=== PATIENT | female | born 1975 | race Caucasian/White ===

== ENCOUNTER → 2019-07-24 13:46 | Outpatient (CLI) | payer OTHER, SELFPAY ==
--- NOTE | ~2019-07-24 | MM_ITS ---
EXAMINATION: MM screening aleisha BI w kvng HISTORY: Screening mammogram TECHNIQUE: Craniocaudal and mediolateral oblique 3-D tomosynthesis images were obtained and synthetic 2-D images were generated. CAD analysis was submitted and interpreted. COMPARISON: 02/08/2018, 01/07/2014 bilateral digital screening mammogram examinations BREAST PARENCHYMAL COMPOSITION: The breasts are heterogeneously dense, which may obscure small masses . FINDINGS: 1 cm mass is suggested posteriorly in the lower inner right breast (MLO Tomosynthesis image 58/88). 3.5 mm circumscribed mass is noted anteriorly in the upper mid right breast (MLO Tomosynthesis image 36/88) Otherwise there is no evidence of suspicious mass, calcification, or architectural distortion to sugg est malignancy in either breast. There has been no other suspicious interval change. IMPRESSION: 1. Possible right breast masses 2. Diagnostic right mammogram and right breast ultrasound examination are recommended. BI-RADS Category 0: Incomplete: Needs additional imaging evaluation. Reviewed, dictated and finalized at location A. L PREPAREDNESS COORDINATOR IMPRESSION: 1. Possible right breast masses 2. Diagnostic right mammogram and right breast ultrasound examination are recom mended. BI-RADS Category 0: Incomplete: Needs additional imaging evaluation.
== END ==
PROVIDERS: PCP Family Medicine; Visit Provider Nurse Practitioner
DX: Z12.31 Encounter for screening mammogram for malignant neoplasm of breast (principal); R92.8 Other abnormal and inconclusive findings on diagnostic imaging of breast
CPT/HCPCS: 77063; 77067

== ENCOUNTER 2019-08-14 09:33 | Outpatient (CLI) | payer OTHER, SELFPAY ==
--- NOTE | ~2019-08-14 | MMUS_ITS ---
EXAMINATION: MM diagnostic mammo unilat RT, US breast RT limited HISTORY: 1 cm mass in posterior lower inner right breast and 3.5 mm mass anteriorly in upper mid righ t breast on 07/24/2019 bilateral digital screening mammogram TECHNIQUE: Additional 3-D tomosynthesis images of the right breast were performed and synthetic 2-D i mages were generated. CAD analysis was submitted and interpreted. High resolution limited right breas t ultrasound was performed. COMPARISON: 07/24/2019 bilateral digital screening mammogram FINDINGS: MAMMOGRAPHIC FINDINGS: An approximately 7 x 7 mm circumscribed reniform opacity is noted. Posteriorly in the mid to lower ri ght breast on MLO and ML views. This has the appearance of an intramammary lymph node and may be mini kadeem evident at the posterior margin of the right breast on 02/08/2018 MLO view. An approximately 3 mm circumscribed low-density opacity is again noted in the upper outer right breas t, with suggestion of a radiolucent hilus, likely a small benign intramammary lymph node. ULTRASOUND: 1:00 8 cm from nipple: 3 x 6 mm benign-appearing lymph node 12-1:00 4 cm from nipple: 3 x 6.3 mm circumscribed primarily sonolucent lesion with minimal internal septation, without internal vascularity or posterior shadowing. The sonographic appearance is benign. IMPRESSION: 1. No mammographic evidence of malignancy 2. 6 month diagnostic right mammogram follow-up is recommended, with ultrasound if required. BI-RADS category 3, probably benign findings. Reviewed, dictated and finalized at location A. S PERSON IMPRESSION: 1. No mammographic evidence of malignancy 2. 6 month diagnostic right mammogram follow-up is recommended, with ultrasound if required. BI-RADS category 3, probably benign findings.
== END 2019-08-14 09:34 ==
LOC: MICIMG 09:33
PROVIDERS: Visit Provider Obstetrics & Gynecology Gynecology
DX: R92.8 Other abnormal and inconclusive findings on diagnostic imaging of breast (principal)
CPT/HCPCS: 76642; 77065

== ENCOUNTER → 2020-02-19 09:28 | Outpatient (CLI) | payer OTHER, SELFPAY ==
--- NOTE | ~2020-02-19 | MMUS_ITS ---
EXAMINATION: MM diagnostic aleisha BI w kvng, US breast LT limited HISTORY: Left breast thickening and palpable lump TECHNIQUE: Additional 3-D tomosynthesis images of the breasts were performed and synthetic 2-D images were generated. CAD analysis was submitted and interpreted. High resolution left breast ultrasound w as performed. COMPARISON: Comparison to multiple prior studies sequentially, with oldest reviewed study dated 01/07. BREAST PARENCHYMAL COMPOSITION: Breast composed of scattered areas of fibroglandular density. FINDINGS: MAMMOGRAPHIC FINDINGS: The breasts are stable without evidence for malignancy. ULTRASOUND: There is no evidence of focal abnormal solid or cystic lesion in the vicinity of the skin thickening. IMPRESSION: 1. No evidence for malignancy in either breast. 2. Routine yearly screening mammogram and regular clinical breast examination are recommended. BI-RADS Category 1: Negative Reviewed, dictated and finalized at location A. IMPRESSION: 1. No evidence for malignancy in either breast. 2. Routine yearly screening mammogram and regular clinical breast examination a re recommended. BI-RADS Category 1: Negative
== END ==
PROVIDERS: Visit Provider Obstetrics & Gynecology Gynecology
DX: R92.8 Other abnormal and inconclusive findings on diagnostic imaging of breast (principal)
CPT/HCPCS: 76642; 77062; 77066; G0279

== ENCOUNTER 2020-07-12 14:14 | Outpatient (CLI) | payer OTHER, SELFPAY ==
--- NOTE | ~2020-07-12 | US_ITS ---
EXAMINATION: US transvaginal DATE: 07/12/2020 14:35 INDICATION: Abnormal uterine bleeding Comparison:No prior studies for comparison. TECHNIQUE: Multiple transabdominal and endovaginal sonographic images of the pelvis performed. FINDINGS: The uterus measures 7.6 x 4.2 x 5.3 cm. There is myometrial mass posteriorly in the uterus measuring 1.8 x 1.5 x 1 cm, consistent with fibroid. The endometrial complex measures 5 mm. The right ovary measures 3.1 x 1.4 x 2.4 cm and the left ovary measures 3.1 x 1.7 x 1.8 cm. There ar e small follicles in each ovary. There is no free fluid in the pelvis. There are no abnormal masses seen on either side. IMPRESSION: 1. Uterine mass posteriorly measuring up to 1.8 cm, consistent with a fibroid. Reviewed, dictated and finalized at location A. UNICATIONS PLANNER
== END 2020-07-12 14:15 ==
LOC: MICIMG 14:15
PROVIDERS: Visit Provider Nurse Practitioner
DX: N92.0 Excessive and frequent menstruation with regular cycle (principal); N85.9 Noninflammatory disorder of uterus, unspecified
CPT/HCPCS: 76830

== ENCOUNTER → 2020-08-23 07:54 | Outpatient (CLI) | payer OTHER, SELFPAY ==
--- NOTE | ~2020-08-23 | MM_ITS ---
EXAMINATION: MM screening aleisha BI w kvng HISTORY: Screening TECHNIQUE: Craniocaudal and mediolateral oblique 3-D tomosynthesis images were obtained and synthetic 2-D images were generated. CAD analysis was submitted and interpreted. COMPARISON: Comparison to multiple prior studies sequentially, with oldest reviewed study dated 01/07. BREAST PARENCHYMAL COMPOSITION: The breasts are heterogeneously dense, which may obscure small masses . FINDINGS: There is no evidence of suspicious mass, calcification, or architectural distortion to sugg est malignancy in either breast. There has been no suspicious interval change. IMPRESSION: 1. No mammographic evidence of malignancy. 2. Recommend routine screening mammography in one year. BI-RADS Category 1: Negative Reviewed, dictated and finalized at location A.
== END ==
PROVIDERS: Visit Provider Nurse Practitioner
DX: Z12.31 Encounter for screening mammogram for malignant neoplasm of breast (principal)
CPT/HCPCS: 77063; 77067

== ENCOUNTER 2020-10-27 07:55 | Outpatient (CLI) | payer OTHER, SELFPAY ==
[2020-10-27 08:47] LABS: Hematocrit 36.4 % (37.0-47.0); Hemoglobin 11.7 g/dL (12.0-15.0)
== END 2020-10-27 07:56 | disposition home or self-care (01) ==
LOC: ANHSURGERY 08:00
PROVIDERS: Anesthesiology; PCP Family Medicine; Visit Provider Obstetrics & Gynecology Gynecology
DX: Z01.818 Encounter for other preprocedural examination (principal); N93.9 Abnormal uterine and vaginal bleeding, unspecified
CPT/HCPCS: 36415; 85014; 85018

== ENCOUNTER → 2020-10-28 07:34 | Outpatient (CLI) | payer OTHER, SELFPAY ==
[2020-10-28 19:23] LABS: SARS-CoV-2 RNA PCR Negative
== END ==
PROVIDERS: PCP Family Medicine; Visit Provider Obstetrics & Gynecology Gynecology
DX: Z01.812 Encounter for preprocedural laboratory examination (principal); Z20.822 Contact with and (suspected) exposure to COVID-19
CPT/HCPCS: C9803; U0003; U0005

== ENCOUNTER 2020-10-31 00:43 | Day surgery (SDC) | payer OTHER, SELFPAY ==
[2020-10-19 09:29] VITALS: BMI 34.3
[2020-10-31 06:21] VITALS: BP 134/98; PULSE 77; RESP 18; TEMP 36.1; O2SAT 100
[2020-10-31] MEDS: ACETAMINOPHEN 500 MG TABLET 1000 MG PO (06:40)
[2020-10-31] MEDS: LACTATED RINGERS 1,000 ML 30 ML IV CONT (06:40)
--- NOTE | 2020-10-31 06:43 | P.PNAN_ITS ---
Anes - Initial Pre Proc Eval Procedure: Operation Date: 10/31/20 07:30 Proposed Procedures p Hysteroscopy Dilation and Curettage With Myosure - Eliz Mendoza MD Date/Time: 10/31/20 06:43 Surgeon: Eliz Mendoza MD Pre Op Diagnosis: Polyp, Menorrhagia Patient Data Age: 45 Gender: F Height: 1.78 m Weight: 108.59 kg Allergies Allergy/AdvReac Type Severity Reaction Status Date / Time No Known Allergies Allergy Verified 10/19/20 09:26 Home Medications Medication Instructions Recorded Confirmed Type omeprazole 20 mg tablet,delayed 20 mg PO DAILY #30 tablet 08/26/19 10/19/20 Rx release cetirizine 10 mg tablet 10 mg PO DAILY PRN #30 tablet 10/17/20 10/19/20 Rx Patient hx anesthesia problems: none Family hx anesthesia problems: none [facility] Past Medical History Medical History (Updated 10/31/20 @ 06:44 by Driss Mcpherson DO) BMI 38.0-38.9,adult GERD (gastroesophageal reflux disease) Polyp at cervical os Surgical History Surgical History (Updated 10/31/20 @ 06:44 by Driss Mcpherson DO) History of cholecystectomy History of tubal ligation Family History Family History Mother Family history of malignant neoplasm of breast in first degree relative Family history of type 2 diabetes mellitus Patient's mother is Breast cancer Grandparent Hypertension Father No problems noted. Sibling No problems noted. 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 Spiritual care concerns: No Anes - Eval Final PreProcedure Day of Procedure 10/31/20 06:43 Patient weight: obese Heart: regular rate and rhythm Lungs: clear to auscultation and normal air movement Airway: Mallampati scale class 1 Neurological: alert and oriented Last oral intake: >/= 8 hours ASA classification: II Emergent: no Anesthetic plan: proceed Anesthesia type and monitoring: general GIVS and standard monitoring Informed Consent: The patient's anesthetic plan and its attendant risks and benefits were discussed with the patient/family/POA. Questions were solicited and answers provided to the satisfaction of the patient/family/POA.
--- NOTE | 2020-10-31 07:01 | PM.HPGS ---
History of Present Illness History of Present Illness Consent: Risks, benefits, and alternatives have been discussed and questions answered. Patient agrees to proceed with procedure. Chief complaint: Polyp, Menorrhagia Narrative: Eliz Reece is a 45 year old female with new onset in heavy cycles starting in May of 2020. The patient underwent hysteroscopy in the office with endometrial biopsy that was benign however there was a sessile mass at the fundus appearing to be a polyp that was unable to be removed in the office. The patient presents today for hysteroscopy D and C with MyoSure resection of mass. Risks of infection, bleeding, perforation, and fluid overload were reviewed. Possible pathology was also discussed. Patient voices understanding and agrees to proceed. Review of Systems Review of Systems: Narrative: not repeated day of surgery; patient states no changes in status PMFSH Past Medical History Medical History (Updated 10/31/20 @ 07:05 by Eliz Mendoza MD) BMI 38.0-38.9,adult GERD (gastroesophageal reflux disease) (normal spontaneous vaginal delivery) Status post hysteroscopy Surgical History Surgical History (Updated 10/31/20 @ 06:44 by Driss Mcpherson DO) History of cholecystectomy History of tubal ligation Family History Family History Mother Family history of malignant neoplasm of breast in first degree relative Family history of type 2 diabetes mellitus Patient's mother is Breast cancer Grandparent Hypertension Father No problems noted. Sibling No problems noted. 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 Spiritual care concerns: No Meds Home Medications and Allergies Home Medications Medication Instructions Recorded Confirmed Type omeprazole 20 mg tablet,delayed 20 mg PO DAILY #30 tablet 08/26/19 10/19/20 Rx release cetirizine 10 mg tablet 10 mg PO DAILY PRN #30 tablet 10/17/20 10/19/20 Rx Allergies Allergy/AdvReac Type Severity Reaction Status Date / Time No Known Allergies Allergy Verified 10/31/20 07:02 Exam Const: General: healthy appearing and alert Orientation/consciousness: patient oriented x3 Resp: Effort & Inspection: normal respiratory effort Auscultation: clear to auscultation bilaterally Cardio: Rate: regular rate Rhythm: regular rhythm GI: GI Palp: Yes Soft to palpation, No Tenderness to palpation present (GI) and No Palpable mass present : External Female Exam: normal external appearance Speculum Exam - Vagina: normal appearance of the vagina and normal vaginal discharge Speculum Exam - Cervix: normal appearance of the cervix Bimanual exam- vagina & uterus: uterine size normal and consistency normal Bimanual Exam- Adnexa, other: normal adnexae and No adnexal tenderness Neuro: General: patient oriented x3 Assessment and Plan Assessment and plan (1) Menorrhagia: Code(s): N92.0 - Excessive and frequent menstruation with regular cycle Status: Acute Assessment and Plan: Endometrial mass appearing to be polyp in fundus, sessile will be removed with myosure. Will proceed with hysteroscopy and D&C.
--- NOTE | 2020-10-31 07:13 | WPDHPUPDATE1 ---
History and Physical Update Update Date/Time: 10/31/20 07:13 History and Physical has been reviewed, including an updated exam of the patient. There are NO changes in the patient's condition. Risks, benefits, and alternatives have been discussed and questions answered. Patient agrees to proceed with procedure.
[2020-10-31 07:55] VITALS: BP 118/73; PULSE 71; RESP 16; O2SAT 99
--- NOTE | 2020-10-31 07:56 | P.OP_ITS ---
Procedure Note - Detailed Date of procedure: 10/31/20 Pre-op diagnosis: Polyp, Menorrhagia Post-op diagnosis: same Procedure performed: The and C hysteroscopy with MyoSure resection of polyps Description of procedure: The patient was taken to the operating room and placed in the dorsal lithotomy position under anesthesia. She was prepped and draped in usual sterile fashion. [place] speculum was placed in the vagina and the cervix was grasped on the anterior lip with a tenaculum. The cervix was injected with 1% lidocaine in each quadrant. The uterus is sounded to 8cm. The MyoSure device is opened and placed and the anterior sessile polyps are removed under direct visualization. The MyoSure device is then removed and the sharp curette is used to sharply curette the endometrium until a good uterine cry was noted in all areas. All instruments were then removed. Sponge, needle, and instrument counts are correct per the OR staff. Patient is awakened from anesthesia and taken to recovery in stable condition. Anesthesia: MAC and local Surgeon: Eliz Mendoza MD Estimated blood loss (mL): 5 Drains: No Packing: No Pathology: yes (Endometrial shavings and curettings) Complications: No immediate complications Condition: stable Disposition: PACU Findings: Uterus sounds to 8cm there are polyps noted on the anterior fundus. The remainder of the endometrium appears grossly normal.
[2020-10-31] MEDS: KETOROLAC 30 MG/ML VIAL (*BKC) IV PUSH (08:05)
[2020-10-31 08:25] VITALS: BP 127/77; PULSE 80; RESP 20
[2020-10-31 08:55] VITALS: BP 134/66; PULSE 62; RESP 20
[2020-10-31 09:15] VITALS: BP 128/72; PULSE 60; RESP 20
== END 2020-10-31 09:20 | disposition home or self-care (01) ==
PROVIDERS: PCP Family Medicine; Visit Provider Obstetrics & Gynecology Gynecology
PROC: 0U5B8ZZ Destruction of Endometrium, Via Natural or Artificial Opening Endoscopic (ICD-10-PCS; CPT 58563; principal; 2020-10-31 07:30)
DX: N92.0 Excessive and frequent menstruation with regular cycle (principal); N84.0 Polyp of corpus uteri; K21.9 Gastro-esophageal reflux disease without esophagitis; E66.9 Obesity, unspecified; Z68.34 Body mass index [BMI] 34.0-34.9, adult
CPT/HCPCS: 58558; 36415; 85014; 85018; 88305; A9270; C9803; J1885; J2250; J2704; J3010; J7030; J7120; U0003; U0005

== ENCOUNTER → 2021-01-06 03:12 | Outpatient (CLI) | payer OTHER, SELFPAY ==
[2021-01-06 18:53] LABS: SARS-CoV-2 RNA PCR Negative
== END ==
PROVIDERS: PCP Family Medicine; Visit Provider Obstetrics & Gynecology Gynecology
DX: Z01.812 Encounter for preprocedural laboratory examination (principal); Z20.822 Contact with and (suspected) exposure to COVID-19
CPT/HCPCS: C9803; U0003; U0005

== ENCOUNTER 2021-01-09 01:57 | Day surgery (SDC) | payer OTHER, SELFPAY ==
[2021-01-03 09:39] VITALS: BMI 37.9
--- NOTE | 2021-01-09 07:41 | WPDHPUPDATE1 ---
History and Physical Update Update Date/Time: 01/09/21 07:41 History and Physical has been reviewed, including an updated exam of the patient. There are NO changes in the patient's condition. Risks, benefits, and alternatives have been discussed and questions answered. Patient agrees to proceed with procedure.
--- NOTE | 2021-01-09 07:41 | PM.HPGS ---
History of Present Illness History of Present Illness Consent: Risks, benefits, and alternatives have been discussed and questions answered. Patient agrees to proceed with procedure. Chief complaint: menorrhagia Narrative: Eliz Reece is a 45 year old female with with heavy and irregular cycles. She underwent hysteroscopy with D&C that revealed benign endometrium. Options for therapy were discussed and the patient has elected to proceed with endometrial ablation. Success and failure were discussed with the patient. Risks of the surgery including infection, bleeding, perforation, and device failure were reviewed. Patient voices understanding and agrees to proceed. Review of Systems Gastrointestinal: Gastrointestinal: Reports heartburn [facility] Past Medical History Medical History (Updated 10/31/20 @ 07:05 by Eliz Mendoza MD) BMI 38.0-38.9,adult GERD (gastroesophageal reflux disease) (normal spontaneous vaginal delivery) Status post hysteroscopy Surgical History Surgical History (Updated 10/31/20 @ 06:44 by Driss Mcpherson DO) History of cholecystectomy History of tubal ligation Family History Family History Mother Family history of malignant neoplasm of breast in first degree relative Family history of type 2 diabetes mellitus Patient's mother is Breast cancer Grandparent Hypertension Father No problems noted. Sibling No problems noted. 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 Spiritual care concerns: No Meds Home Medications and Allergies Home Medications Medication Instructions Recorded Confirmed Type cetirizine [Zyrtec] 10 mg PO HS 01/03/21 01/03/21 History omeprazole 20 mg PO HS 01/03/21 01/03/21 History Allergies Allergy/AdvReac Type Severity Reaction Status Date / Time No Known Allergies Allergy Verified 01/03/21 09:34 Exam Const: General: comfortable and no acute distress GI: GI Palp: No abdominal tenderness and Yes Soft to palpation : External Female Exam: normal external appearance Speculum Exam - Vagina: normal appearance of the vagina Speculum Exam - Cervix: normal appearance of the cervix Bimanual exam- vagina & uterus: normal bimanual exam Bimanual Exam- Adnexa, other: normal adnexae Assessment and Plan Assessment and plan (1) Menorrhagia: Code(s): N92.0 - Excessive and frequent menstruation with regular cycle Status: Acute Assessment and Plan: Plan to proceed with Cayla endometrial ablation
--- NOTE | 2021-01-09 09:20 | WPDANESEPPF ---
Anes - Initial Pre Proc Eval Procedure: Operation Date: 01/09/21 11:15 Proposed Procedures p Hysteroscopy, Cayla Ablation - Eliz Mendoza MD Date/Time: 01/09/21 09:20 Surgeon: Eliz Mendoza MD Pre Op Diagnosis: menorrhagia Patient Data Age: 45 Gender: F Height: 1.68 m Weight: 106.59 kg Allergies Allergy/AdvReac Type Severity Reaction Status Date / Time No Known Allergies Allergy Verified 01/03/21 09:34 Home Medications Medication Instructions Recorded Confirmed Type cetirizine [Zyrtec] 10 mg PO HS 01/03/21 01/03/21 History omeprazole 20 mg PO HS 01/03/21 01/03/21 History Patient hx anesthesia problems: none Family hx anesthesia problems: none [facility] Past Medical History Medical History (Updated 01/09/21 @ 09:21 by Jamel Dias MD) BMI 38.0-38.9,adult GERD (gastroesophageal reflux disease) Menorrhagia (normal spontaneous vaginal delivery) Status post hysteroscopy Surgical History Surgical History (Updated 10/31/20 @ 06:44 by Driss Mcpherson DO) History of cholecystectomy History of tubal ligation Family History Family History Mother Family history of malignant neoplasm of breast in first degree relative Family history of type 2 diabetes mellitus Patient's mother is Breast cancer Grandparent Hypertension Father No problems noted. Sibling No problems noted. 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 Spiritual care concerns: No Anes - Eval Final PreProcedure Day of Procedure 01/09/21 09:20 Patient weight: obese Heart: regular rate and rhythm Lungs: clear to auscultation and normal air movement Airway: Mallampati scale class II Neurological: alert and oriented Last oral intake: >/= 8 hours ASA classification: III Emergent: no Anesthetic plan: proceed Anesthesia type and monitoring: general LMA and ETT Informed Consent: The patient's anesthetic plan and its attendant risks and benefits were discussed with the patient/family/POA. Questions were solicited and answers provided to the satisfaction of the patient/family/POA.
[2021-01-09 09:59] VITALS: BP 134/84; PULSE 80; RESP 14; TEMP 36.9; O2SAT 99; BMI 38.1
[2021-01-09] MEDS: LACTATED RINGERS 1,000 ML 30 ML IV CONT (10:04)
[2021-01-09] MEDS: ACETAMINOPHEN 500 MG TABLET 1000 MG PO (10:10)
--- NOTE | 2021-01-09 11:37 | P.OP_ITS ---
Procedure Note - Detailed Date of Procedure 01/09/21 Pre-op Diagnosis menorrhagia Post-op Diagnosis same Procedure Performed Hysteroscopy with cayla ablation and removal of endometrial polyp Surgeon Eliz Mendoza MD Anesthesia other (GIVS) Findings uterus sounds to 8cm and has a central endometrial polyp;the remainder of the endometrium appears grossly normal Description of Procedure the patient was taken to the operating room and placed under anesthesia in dorsal lithotomy position. She is prepped and draped in the usual sterile fashion. [place] speculum was placed in the vagina and the cervix is grasped on the anterior lip with a tenaculum and injected with 1% lidocaine in each quadrant. The uterus is sounded to 8cm. The cervix is serially dilated with [place]. The diagnostic hysteroscope was placed and a polyp was noted. The polyp was grasped with polyp forceps and sent for pathology. Hysteroscope was replaced and the polyp was noted to be completely absent. The Cayla device is opened and placed. The length was set at 5cm and the cavity assessment passed on the 1st attempt. Treatment cycle lasted a full 2 minutes. Then ablation device was removed and the hysteroscope replaced with a good ablation effect noted. All instruments are removed. Sponge, needle, and instrument counts are correct per the OR staff. Estimated Blood Loss 5 Drains No Packing No Pathology yes ( Endometrial polyp) Complications No immediate complications Condition stable Disposition PACU
[2021-01-09 11:39] VITALS: BP 161/105; PULSE 94; RESP 20
[2021-01-09 12:05] VITALS: BP 126/78; PULSE 54; RESP 16
[2021-01-09 12:35] VITALS: BP 121/77; PULSE 64
[2021-01-09] MEDS: oxyCODONE HCL (*CRX) 5 MG TAB IR PO (12:37)
[2021-01-09 13:05] VITALS: BP 124/76; PULSE 52
== END 2021-01-09 13:17 | disposition home or self-care (01) ==
PROVIDERS: PCP Family Medicine; Visit Provider Obstetrics & Gynecology Gynecology
PROC: 0U5B8ZZ Destruction of Endometrium, Via Natural or Artificial Opening Endoscopic (ICD-10-PCS; CPT 58563; principal; 2021-01-09 11:15)
DX: N92.0 Excessive and frequent menstruation with regular cycle (principal); N84.0 Polyp of corpus uteri; K21.9 Gastro-esophageal reflux disease without esophagitis; E66.9 Obesity, unspecified; Z68.38 Body mass index [BMI] 38.0-38.9, adult
CPT/HCPCS: 58563; 88305; A9270; C9803; J2250; J2405; J2704; J3010; J7030; J7120; U0003; U0005

== ENCOUNTER 2021-07-31 15:11 | Outpatient (CLI) | payer OTHER, SELFPAY ==
--- NOTE | ~2021-07-31 | XR_ITS ---
XR cervical spine min 6V 07/31/2021 15:47 Indication: Skin paresthesias. Cervicalgia. Procedure: 6 views of the cervical spine including flexion/extension views Comparison: No prior studies for comparison. Findings: No fracture, subluxation or dislocation. Lung apices are normal. Odontoid process is normal . Vertebral body and disc heights are preserved. Mild uncinate degenerative changes at multiple level s. Impression: 1: Mild cervical spondylosis. Reviewed, dictated and finalized at location B. 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
== END 2021-07-31 15:12 ==
PROVIDERS: PCP Family Medicine; Visit Provider Nurse Practitioner Family
DX: M47.812 Spondylosis without myelopathy or radiculopathy, cervical region (principal); R20.2 Paresthesia of skin
CPT/HCPCS: 72052

== ENCOUNTER → 2021-09-01 16:55 | Outpatient (CLI) | payer OTHER, SELFPAY ==
--- NOTE | ~2021-09-01 | MM_ITS ---
EXAMINATION: MM screening aleisha BI w kvng HISTORY: Screening mammogram, family history of breast cancer in her mother. TECHNIQUE: Craniocaudal and mediolateral oblique 3-D tomosynthesis images were obtained and synthetic 2-D images were generated. CAD analysis was submitted and interpreted. COMPARISON: 08/23/2020, 02/19/2020, 08/14/2019, 07/24/2019, 02/08/2018 BREAST PARENCHYMAL COMPOSITION: There are scattered areas of fibroglandular density. FINDINGS: There is a stable mass in the posterior third of the inner right breast. There is no suspic ious mass, calcification, or architectural distortion to suggest malignancy in either breast. There h as been no suspicious interval change. IMPRESSION: 1. No mammographic evidence of malignancy. 2. Recommend routine screening mammography in one year. BI-RADS Category 2: Benign finding(s). Reviewed, dictated and finalized at location A.
== END ==
PROVIDERS: Visit Provider Nurse Practitioner
DX: Z12.31 Encounter for screening mammogram for malignant neoplasm of breast (principal)
CPT/HCPCS: 77063; 77067

== ENCOUNTER → 2022-10-06 08:40 | Outpatient (CLI) | payer OTHER, SELFPAY ==
--- NOTE | ~2022-10-06 | MM_ITS ---
EXAMINATION: MM screening aleisha BI w kvng HISTORY: Screening mammogram, family history of breast cancer in her mother. TECHNIQUE: Craniocaudal and mediolateral oblique 3-D tomosynthesis images were obtained and synthetic 2-D images were generated. CAD analysis was submitted and interpreted. COMPARISON: 09/01/2021, 08/23/2020, 02/19/2020 BREAST PARENCHYMAL COMPOSITION: The breasts are heterogeneously dense, which may obscure small masses . FINDINGS: No suspicious mass, calcification, or architectural distortion are identified in either lyle ast to suggest malignancy. There has been no suspicious interval change. IMPRESSION: 1. No mammographic evidence of malignancy. 2. Recommend routine screening mammography in one year. BI-RADS Category 1: Negative Reviewed, dictated and finalized at location A.
== END ==
PROVIDERS: PCP Nurse Practitioner; Visit Provider Nurse Practitioner
DX: Z12.31 Encounter for screening mammogram for malignant neoplasm of breast (principal)
CPT/HCPCS: 77063; 77067

== ENCOUNTER → 2023-01-09 08:03 | Outpatient (CLI) | payer OTHER, SELFPAY ==
--- NOTE | ~2023-01-09 | US_ITS ---
EXAMINATION: US thyroid DATE: 01/09/2023 08:18 INDICATION: Dysphagia, unspecified. TECHNIQUE: Multiple ultrasound images of the thyroid were obtained. COMPARISON: None. FINDINGS: The right thyroid lobe measures 4.7 x 1.6 x 1.7 cm. The left thyroid lobe measures 4.8 x 1.4 x 1.4 c m. There is normal echotexture and echogenicity throughout the thyroid gland. No discrete nodules id entified. Normal vascular flow is present. IMPRESSION: 1. Normal thyroid. Reviewed, dictated and finalized at location B. IMPRESSION: 1. Normal thyroid.
== END ==
PROVIDERS: PCP Family Medicine; Visit Provider Nurse Practitioner Family
DX: R22.1 Localized swelling, mass and lump, neck (principal); R13.10 Dysphagia, unspecified
CPT/HCPCS: 76536

== ENCOUNTER 2023-01-15 00:03 | Day surgery (SDC) | payer OTHER, SELFPAY ==
[2023-01-07 14:00] VITALS: BMI 42.9
[2023-01-15 10:00] VITALS: BP 145/88; PULSE 77; RESP 18; TEMP 36.3; O2SAT 98; BMI 42.3
[2023-01-15] MEDS: LACTATED RINGERS 1,000 ML 150 ML IV CONT (10:22)
--- NOTE | 2023-01-15 10:22 | WPDANESEPPF ---
Anes - Initial Pre Proc Eval Procedure: Operation Date: 01/15/23 11:30 Proposed Procedures p Esophagogastroduodenoscopy - Jack Chapa MD Date/Time: 01/15/23 10:22 Surgeon: Jack Chapa MD Pre Op Diagnosis: GERD, Dysphagia Patient Data Age: 47 Gender: F Height: 1.63 m Weight: 112 kg Last Vital Signs Temp 36.3 C L 01/15/23 10:00 Pulse 77 01/15/23 10:00 Resp 18 01/15/23 10:00 BP 145/88 H 01/15/23 10:00 Pulse Ox 98 01/15/23 10:00 O2 Del Method Room Air 01/15/23 10:00 Allergies Allergy/AdvReac Type Severity Reaction Status Date / Time No Known Allergies Allergy Verified 01/15/23 10:08 Home Medications Medication Instructions Recorded Confirmed Type escitalopram oxalate 10 mg tablet 10 mg PO DAILY 10/15/22 01/15/23 History omeprazole 40 mg capsule,delayed 40 mg PO BID #120 caps 01/01/23 01/15/23 Rx release cholecalciferol (vitamin D3) 1,250 1,250 mcg PO WEEKLY 8 weeks #8 caps 01/02/23 01/15/23 Rx mcg (50,000 unit) capsule Patient hx anesthesia problems: post op nausea/vomiting Family hx anesthesia problems: none Results Review: All pre-operative results and documents have been reviewed as part of the pre-operative evaluation. [facility] Past Medical History Medical History BMI 36.0-36.9,adult BMI 38.0-38.9,adult BMI 39.0-39.9,adult GERD (gastroesophageal reflux disease) Menorrhagia (normal spontaneous vaginal delivery) Status post hysteroscopy Surgical History Surgical History History of cholecystectomy History of tubal ligation Family History Family History Mother Family history of malignant neoplasm of breast in first degree relative Family history of type 2 diabetes mellitus Patient's mother is Breast cancer Grandparent Hypertension Father No problems noted. Sibling No problems noted. 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 Spiritual care concerns: No Anes - Eval Final PreProcedure Day of Procedure 01/15/23 10:22 Patient weight: morbidly obese Heart: regular rate and rhythm Lungs: clear to auscultation Airway: Mallampati scale class II Neurological: alert and oriented Last oral intake: >/= 8 hours ASA classification: III Emergent: no Anesthetic plan: proceed Anesthesia type and monitoring: general GIVS and standard monitoring Results Review: All pre-operative results and documents have been reviewed as part of the pre-operative evaluation. Informed Consent: The patient's anesthetic plan and its attendant risks and benefits were discussed with the patient/family/POA. Questions were solicited and answers provided to the satisfaction of the patient/family/POA.
--- NOTE | 2023-01-15 10:36 | PM.HPGS ---
History of Present Illness History of Present Illness Consent: Risks, benefits, and alternatives have been discussed and questions answered. Patient agrees to proceed with procedure. Chief complaint: GERD, Dysphagia Narrative: Eliz Reece is a 47 year old female with gerd and dysphagia, using reflux medication , had egd but several years ago Review of Systems Constitutional: Constitutional: Denies headache(s) and Denies weakness Eyes: Eyes: Denies blurry vision ENT: Reports Normal hearing present, Denies headache(s) and Denies neck pain Cardiovascular: Cardiovascular: Denies chest pain and Denies dyspnea Respiratory: Respiratory: Denies dyspnea Gastrointestinal: Gastrointestinal: Reports no additional gastrointestinal complaints Genitourinary: Genitourinary: Denies dysuria Musculoskeletal: Musculoskeletal: Denies neck pain Integumentary/Breasts: Skin/Breast: Denies dry skin Neurologic: Reports Normal hearing present, Denies headache(s) and Denies weakness Psychiatric: Psychiatric: Denies anxiety Endocrine: Endocrine: Denies change in body appearance Hematologic/Lymphatic: Hematologic/Lymphatic: Denies easy bleeding Allergic/Immunologic: Allergic/Immunologic: Denies urticaria PMFSH Past Medical History Medical History BMI 36.0-36.9,adult BMI 38.0-38.9,adult BMI 39.0-39.9,adult GERD (gastroesophageal reflux disease) Menorrhagia (normal spontaneous vaginal delivery) Status post hysteroscopy Surgical History Surgical History History of cholecystectomy History of tubal ligation Family History Family History Mother Family history of malignant neoplasm of breast in first degree relative Family history of type 2 diabetes mellitus Patient's mother is Breast cancer Grandparent Hypertension Father No problems noted. Sibling No problems noted. 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 Spiritual care concerns: No Meds Home Medications and Allergies Home Medications Medication Instructions Recorded Confirmed Type escitalopram oxalate 10 mg tablet 10 mg PO DAILY 10/15/22 01/15/23 History omeprazole 40 mg capsule,delayed 40 mg PO BID #120 caps 01/01/23 01/15/23 Rx release cholecalciferol (vitamin D3) 1,250 1,250 mcg PO WEEKLY 8 weeks #8 caps 01/02/23 01/15/23 Rx mcg (50,000 unit) capsule Allergies Allergy/AdvReac Type Severity Reaction Status Date / Time No Known Allergies Allergy Verified 01/15/23 10:08 Vital Signs Vital Signs - 24 hr 01/15/23 10:00 Temperature 97.4 F L Pulse Rate 77 Respiratory Rate 18 Blood Pressure 145/88 H Pulse Oximetry 98 Oxygen Delivery Room Air Exam Const: General: comfortable and no acute distress HENMT: Face/Nose/Sinus: Normal nares present Eyes: General: appearance normal, both eyes and all related structures Neck: Neck: no JVD Resp: Auscultation: clear to auscultation bilaterally Cardio: Rate: regular rate Rhythm: regular rhythm GI: Inspection: non-distended GI Palp: Yes Soft to palpation Skin: General skin exam: normal color Neuro: G
[2023-01-15 10:53] VITALS: BP 103/67; PULSE 92; RESP 16; O2SAT 98
[2023-01-15 11:03] VITALS: BP 99/65; PULSE 83; RESP 25; O2SAT 98
[2023-01-15 11:13] VITALS: BP 112/71; PULSE 75; RESP 14; O2SAT 98
== END 2023-01-15 11:23 | disposition home or self-care (01) ==
PROVIDERS: PCP Family Medicine; Visit Provider Internal Medicine Gastroenterology
PROC: 0DJ08ZZ Inspection of Upper Intestinal Tract, Via Natural or Artificial Opening Endoscopic (ICD-10-PCS; CPT 43235; principal; 2023-01-15 11:30)
DX: K22.2 Esophageal obstruction (principal); K44.9 Diaphragmatic hernia without obstruction or gangrene; K20.0 Eosinophilic esophagitis; E66.01 Morbid (severe) obesity due to excess calories; Z68.41 Body mass index [BMI] 40.0-44.9, adult
CPT/HCPCS: 43249; 43239; 88305; C1726; J2704; J7120

== ENCOUNTER 2023-05-01 03:32 | Day surgery (SDC) | payer OTHER, SELFPAY ==
[2023-04-18 11:50] VITALS: BMI 40.4
[2023-05-01 10:22] VITALS: BP 125/88; PULSE 79; RESP 18; TEMP 36.4; O2SAT 98; BMI 39.5
[2023-05-01] MEDS: LACTATED RINGERS 1,000 ML 150 ML IV CONT (10:31)
--- NOTE | 2023-05-01 10:32 | SUR.PREOP ---
Patient has had a tubal ligation. Urine test not done.
--- NOTE | 2023-05-01 10:53 | WPDANESEPPF ---
Anes - Initial Pre Proc Eval Procedure: Operation Date: 05/01/23 11:45 Proposed Procedures p Screening Colonoscopy - Jack Chapa MD Date/Time: 05/01/23 10:53 Surgeon: Jack Chapa MD Pre Op Diagnosis: neoplasm screening Patient Data Age: 48 Gender: F Height: 1.68 m Weight: 111.2 kg Last Vital Signs Temp 36.4 C 05/01/23 10:22 Pulse 79 05/01/23 10:22 Resp 18 05/01/23 10:22 BP 125/88 05/01/23 10:22 Pulse Ox 98 05/01/23 10:22 O2 Del Method Room Air 05/01/23 10:22 Allergies Allergy/AdvReac Type Severity Reaction Status Date / Time No Known Allergies Allergy Verified 05/01/23 10:21 Home Medications Medication Instructions Recorded Confirmed Type escitalopram oxalate 10 mg tablet 10 mg PO DAILY 10/15/22 05/01/23 History omeprazole 40 mg capsule,delayed 40 mg PO BID #120 caps 03/26/23 05/01/23 Rx release Patient hx anesthesia problems: none Family hx anesthesia problems: none Results Review: All pre-operative results and documents have been reviewed as part of the pre-operative evaluation. [facility] Past Medical History Medical History BMI 36.0-36.9,adult BMI 38.0-38.9,adult BMI 39.0-39.9,adult Colon cancer screening GERD (gastroesophageal reflux disease) Menorrhagia (normal spontaneous vaginal delivery) Status post hysteroscopy Surgical History Surgical History History of cholecystectomy History of tubal ligation Family History Family History Mother Family history of malignant neoplasm of breast in first degree relative Family history of type 2 diabetes mellitus Patient's mother is Breast cancer Grandparent Hypertension Father No problems noted. Sibling No problems noted. 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 Spiritual care concerns: No Anes - Eval Final PreProcedure Day of Procedure 05/01/23 10:53 Patient weight: obese Heart: regular rate and rhythm Lungs: clear to auscultation Airway: Mallampati scale class II Neurological: alert and oriented Last oral intake: >/= 8 hours ASA classification: III Emergent: no Anesthetic plan: proceed Anesthesia type and monitoring: general GIVS and standard monitoring Results Review: All pre-operative results and documents have been reviewed as part of the pre-operative evaluation. Informed Consent: The patient's anesthetic plan and its attendant risks and benefits were discussed with the patient/family/POA. Questions were solicited and answers provided to the satisfaction of the patient/family/POA.
--- NOTE | 2023-05-01 11:06 | PM.HPGS ---
History of Present Illness History of Present Illness Consent: Risks, benefits, and alternatives have been discussed and questions answered. Patient agrees to proceed with procedure. Chief complaint: neoplasm screening Narrative: Eliz Reece is a 48 year old female here for first screening colonoscopy Review of Systems Constitutional: Constitutional: Denies headache(s) and Denies weakness Eyes: Eyes: Denies blurry vision ENT: Reports Normal hearing present, Denies headache(s) and Denies neck pain Cardiovascular: Cardiovascular: Denies chest pain and Denies dyspnea Respiratory: Respiratory: Denies dyspnea Gastrointestinal: Gastrointestinal: Reports no additional gastrointestinal complaints Genitourinary: Genitourinary: Denies dysuria Musculoskeletal: Musculoskeletal: Denies neck pain Integumentary/Breasts: Skin/Breast: Denies dry skin Neurologic: Reports Normal hearing present, Denies headache(s) and Denies weakness Psychiatric: Psychiatric: Denies anxiety Endocrine: Endocrine: Denies change in body appearance Hematologic/Lymphatic: Hematologic/Lymphatic: Denies easy bleeding Allergic/Immunologic: Allergic/Immunologic: Denies urticaria PMF Past Medical History Medical History BMI 36.0-36.9,adult BMI 38.0-38.9,adult BMI 39.0-39.9,adult Colon cancer screening GERD (gastroesophageal reflux disease) Menorrhagia (normal spontaneous vaginal delivery) Status post hysteroscopy Surgical History Surgical History History of cholecystectomy History of tubal ligation Family History Family History Mother Family history of malignant neoplasm of breast in first degree relative Family history of type 2 diabetes mellitus Patient's mother is Breast cancer Grandparent Hypertension Father No problems noted. Sibling No problems noted. 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 Spiritual care concerns: No Meds Home Medications and Allergies Home Medications Medication Instructions Recorded Confirmed Type escitalopram oxalate 10 mg tablet 10 mg PO DAILY 10/15/22 05/01/23 History omeprazole 40 mg capsule,delayed 40 mg PO BID #120 caps 03/26/23 05/01/23 Rx release Allergies Allergy/AdvReac Type Severity Reaction Status Date / Time No Known Allergies Allergy Verified 05/01/23 10:21 Vital Signs Vital Signs - 24 hr 05/01/23 10:22 Temperature 97.6 F Pulse Rate 79 Respiratory Rate 18 Blood Pressure 125/88 Pulse Oximetry 98 Oxygen Delivery Room Air Exam Const: General: comfortable and no acute distress HENMT: Face/Nose/Sinus: Normal nares present Eyes: General: appearance normal, both eyes and all related structures Neck: Neck: no JVD Resp: Auscultation: clear to auscultation bilaterally Cardio: Rate: regular rate Rhythm: regular rhythm GI: Inspection: non-distended GI Palp: Yes Soft to palpation Skin: General skin exam: normal color Neuro: General: gait normal Speech: normal speech Extrem: General: normal to inspection Psych: Mental Status: mental status grossly normal Assessment and Eusebio
[2023-05-01 11:31] VITALS: BP 117/71; PULSE 89; RESP 16; O2SAT 99
[2023-05-01 11:41] VITALS: BP 109/75; PULSE 68; RESP 17; O2SAT 99
[2023-05-01 11:51] VITALS: BP 118/79; PULSE 66; RESP 16; O2SAT 99
== END 2023-05-01 12:00 | disposition home or self-care (01) ==
PROVIDERS: PCP Family Medicine; Visit Provider Internal Medicine Gastroenterology
PROC: 0DJD8ZZ Inspection of Lower Intestinal Tract, Via Natural or Artificial Opening Endoscopic (ICD-10-PCS; CPT 45378; principal; 2023-05-01 11:45)
DX: Z12.11 Encounter for screening for malignant neoplasm of colon (principal); D12.5 Benign neoplasm of sigmoid colon
CPT/HCPCS: 45385; 88305; J2704; J7120

== ENCOUNTER 2024-05-15 10:49 | Outpatient (CLI) | payer OTHER, SELFPAY ==
--- NOTE | ~2024-05-15 | MM_ITS ---
EXAMINATION: MM screening aleisha BI w kvng HISTORY: Screening TECHNIQUE: Craniocaudal and mediolateral oblique 3-D tomosynthesis images were obtained and synthetic 2-D images were generated. CAD analysis was submitted and interpreted. COMPARISON: Comparison to multiple prior studies sequentially, with oldest reviewed study dated 07/24. BREAST PARENCHYMAL COMPOSITION: Not dense: There are scattered areas of fibroglandular density. FINDINGS: There is no evidence of suspicious mass, calcification, or architectural distortion to sugg est malignancy in either breast. There has been no suspicious interval change. IMPRESSION: 1. No mammographic evidence of malignancy. 2. Recommend routine screening mammography in one year. BI-RADS Category 1: Negative Reviewed, dictated and finalized at location B. 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
== END 2024-05-15 10:50 | disposition home or self-care (01) ==
LOC: MICIMG 10:50
PROVIDERS: PCP Family Medicine; Visit Provider Nurse Practitioner Women's Health
DX: Z12.31 Encounter for screening mammogram for malignant neoplasm of breast (principal)
CPT/HCPCS: 77063; 77067

== ENCOUNTER 2024-08-11 11:54 | Emergency (ER) | payer OTHER, SELFPAY ==
[2024-08-11 12:00] VITALS: BP 134/71; PULSE 99; RESP 16; TEMP 36.2; O2SAT 98
[2024-08-11] MEDS: KETOROLAC 30 MG/ML VIAL (*BKC) IM (12:19)
[2024-08-11] MEDS: METOCLOPRAMIDE HCL INJ 10 MG/2 ML VIAL IM (12:20)
--- NOTE | 2024-08-11 12:57 | ED.NAVMDI ---
HPI - Nausea/Vomiting/Diarrhea General Chief complaint: Nausea/Vomiting/Diarrhea Stated complaint: n/v Time Seen by Provider: 08/11/24 11:58 History of Present Illness HPI Narrative: Patient presenting here with nausea, vomiting, headache, body aches, congestion starting yesterday. She does also have a history of reflux. Related Data Home Medications ?Medication ?Instructions ?Recorded ?Confirmed ?Last Taken ?Type escitalopram oxalate 10 mg tablet 10 mg PO DAILY 10/15/22 12/17/23 Unknown History Allergies Allergy/AdvReac Type Severity Reaction Status Date / Time No Known Allergies Allergy Verified 08/11/24 11:56 Review of Systems Review of Systems: All systems reviewed & are unremarkable except as noted in HPI and below PMFSH Past Medical History Medical History (Updated 08/11/24 @ 13:12 by Kristin Fischer MD) Bilateral lower extremity edema Colon cancer screening Screening for thyroid disorder Encounter for screening for lipid disorder Menorrhagia (normal spontaneous vaginal delivery) Status post hysteroscopy GERD (gastroesophageal reflux disease) Surgical History Surgical History History of tubal ligation History of cholecystectomy Family History Family History Mother Family history of malignant neoplasm of breast in first degree relative Family history of type 2 diabetes mellitus Patient's mother is Breast cancer Grandparent Hypertension Father No problems noted. Sibling No problems noted. 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 Spiritual care concerns: No Exam Narrative: EXAMINATION OF ORGAN SYSTEMS/BODY AREAS: Constitutional: Vital signs per nursing GENERAL:[No acute distress, non-toxic appearing.] Appears tired HEAD: Normal with no signs of head trauma. EYES: EOMI, conjunctiva normal ENT: Hearing grossly intact LUNGS: Nonlabored breathing. Clear to auscultation bilaterally HEART: [Regular rate and rhythm] ABD: [Soft], very minimal discomfort left upper quadrant EXT: Normal range of motion SKIN: [No rashes or lesions.] NEURO: [Alert and oriented x 3. No gross focal sensory or strength deficits.] PSYCH: Normal affect Course Vital Signs Vital signs: Vital Signs Temperature 97.2 F L 08/11/24 12:00 Pulse Rate 99 08/11/24 12:00 Respiratory Rate 16 08/11/24 12:00 Blood Pressure 134/71 08/11/24 12:00 Pulse Oximetry 98 08/11/24 12:00 Temperature 97.2 F L 08/11/24 12:00 Pulse Rate 99 08/11/24 12:00 Respiratory Rate 16 08/11/24 12:00 Blood Pressure 134/71 08/11/24 12:00 Pulse Oximetry 98 08/11/24 12:00 MDM - Nausea/Vomiting/Diarrhea MDM Narrative Medical decision making narrative: 49-year-old female presents with nausea, vomiting, body aches, congestion, history and exam consistent with likely viral syndrome, she is treated symptomatically with Toradol and Reglan and on re-evaluation, states she she feels much better. Flu swabs are negative here, I will prescribe symptomatic managed Zofran, Tylenol, Maalox, have her follow-up with her PCP with return precautions. Patient agreeable to this plan. Lab Data Labs: Lab Results 08/11/24 08/11/24 08/11/24 Range/Units 12:14 13:25 13:29 Urine Color Dark yellow (Yellow) Urine Appearance Cloudy H (Clear) Urine pH 5.5 (5.0-9.0) Ur Specific [place] 1.032 (1.001-1.035) Urine Protein Trace (Negative) mg/dL Urine Glucose (UA) Negative (Negative) mg/dL Urine Ketones Trace H (Negative) mg/dL Ur Blood (Man) Negative (Negative) Urine Nitrate Negative (Negative) Urine Bilirubin Negative (Negative) Urine Urobilinogen 0.2 (<2.0) mg/dL Leukocyte Esterase Rfl Negative (Negative) ELIANE/UL Urine RBC 0-2 (0-2) /hpf Urine WBC 0-3 (0-3) /hpf Ur Squamous Epith Cells Moderate H (Few) /hpf Urine Bacteria Trace (None) /hpf Urine Casts ---- Urine Mucus Few H /lpf POC Urine HCG, Qual Negative (Negative) Influenza A (RT-PCR) Negative (Negative) Influenza B (RT-PCR) Negative (Negative) RSV (RT-PCR) Negative (Negative) SARS-CoV-2 RNA (RT-PCR) Negative (Negative) Discharge Plan Discharge Clinical Impression: Acute viral syndrome Patient Disposition: Home, Self-Care Condition: Stable Instructions: Viral Syndrome (ED) Additional Instructions: Please follow up with your doctor; you can always return for any further issues. Patient Language: Portuguese Prescriptions: New alum-mag hydroxide-simeth [Maalox Advanced] 200-200-20 mg/5 mL suspension 10 ml PO QID PRN (Reason: dyspepsia) Qty: 150 0RF Rx Instructions: administer between meals and at bedtime ondansetron 4 mg tablet,disintegrating 4 mg PO Q8H PRN (Reason: nausea and vomiting) Qty: 10 0RF acetaminophen [Tylenol Extra Strength] 500 mg tablet 1,000 mg PO Q6H PRN (Reason: pain) Qty: 50 0RF No Action escitalopram oxalate 10 mg tablet 10 mg PO DAILY furosemide 20 mg tablet 20 mg PO QAM Qty: 90 1RF omeprazole 40 mg capsule,delayed release(DR/EC) 40 mg PO DAILY Qty: 90 0RF Follow-up/Referrals: Jovany Jewell MD [Primary Care Provider] - 2 Days Stand Alone Forms: Work/School Release IP
[2024-08-11 12:58] LABS: Influenza A QL RT-PCR Negative (Negative); Influenza B QL RT-PCR Negative (Negative); RSV RNA, RT-PCR Negative (Negative); SARS-CoV-2 RNA PCR Negative (Negative)
[2024-08-11 13:31] LABS: BEDSIDEPREGUCG Negative (Negative)
--- OUTSIDE RECORDS SUMMARY | 2024-08-11 13:43 | XMS_ITS | CONTINUITY OF CARE DOCUMENT ---
Author Name gucci duckworth Address Unknown Organization [facility] Address [address] [place] [address] [address] [place] [address] Phone [phone] Care Team Providers Care Scooter Mechanic Name Role Phone gucci duckworth Unavailable Unavailable INSURANCE PROVIDERS Payer name Policy type / Coverage type Dorcas red libertarian [employer] Medicaid 1 [id number]
--- OUTSIDE RECORDS SUMMARY | 2024-08-11 13:49 | XMS_ITS | CONTINUITY OF CARE DOCUMENT ---
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
[2024-08-11 14:01] LABS: Add Urine Microscopic? YES; Appearance Urine Cloudy (Clear); Bilirubin Urine Negative (Negative); Blood Urine Negative (Negative); Color Urine Dark Yellow (Yellow); Glucose Urine UA Negative (Negative); Ketones Urine Trace mg/dL (Negative); Leukocyte Esterase Ur Negative LEU/UL (Negative); Nitrate Urine Negative (Negative); Protein Urine Trace mg/dL (Negative); Specific Grav Ur 1.032 (1.001-1.035); Urobilinogen Urine 0.2 mg/dL (<2.0); pH Urine 5.5 (5.0-9.0)
[2024-08-11 14:41] LABS: RBC Urine 0-2 /hpf (0-2); Squamous Epithelial Cell Urine Moderate /hpf (Few); WBC Urine 0-3 /hpf (0-3)
[2024-08-11 14:42] LABS: Bacteria Urine Trace /hpf; Mucus Urine Few /lpf
--- NOTE | 2024-08-11 14:46 | PC.NURSE ---
Pt resting with reg resp. Reports pain & nausea improved. No emesis during her ER visit.
== END 2024-08-11 14:56 | disposition home or self-care (01) ==
PROVIDERS: Emergency Provider Emergency Medicine; PCP Family Medicine
DX: B34.9 Viral infection, unspecified (principal); Z20.822 Contact with and (suspected) exposure to COVID-19; K21.9 Gastro-esophageal reflux disease without esophagitis
CPT/HCPCS: 81001; 81025; 87637; 96372; 99284; J1885; J2765

== ENCOUNTER 2025-02-04 10:25 | Outpatient (CLI) | payer OTHER, SELFPAY ==
--- NOTE | ~2025-02-04 | MMUS_ITS ---
EXAMINATION: MM diagnostic aleisha BI w kvng, US breast RT limited INDICATION: 49-year old female; presents for imaging evaluation of the right breast palpable lump. COMPARISON: 08/23/2020 through 01/07/2014 TECHNIQUE: Digital breast tomosynthesis CC and MLO views of the BILATERAL breast and True lateral and spot compression of the RIGHT breast were obtained with computer-aided detection to assist in interpretation of the study. A radiopaque skin marker was placed over the area of RIGHT breast palpable lump. FINDINGS: The breasts are heterogeneously dense, which may obscure small masses. There are no suspicious masses, calcifications, architectural distortion or any other abnormality in either breast. No suspicious mammographic abnormality correlates to the radiopaque skin marker. RIGHT BREAST ULTRASOUND FINDINGS: Targeted ultrasound evaluation of the palpable area was completed. There is no sonographic abnormality that correlates to the area of palpable lump identified by the patient. . IMPRESSION: NO MAMMOGRAPHIC OR SONOGRAPHIC FINDING CORRELATES TO THE PALPABLE LUMP IN THE RIGHT BREAST. FURTHER EVALUATION OF PATIENT'S PALPABLE LUMP SHOULD BE BASED ON CLINICAL IMPRESSION. FOLLOW-UP CLINICALLY WARRANTED. NO MAMMOGRAPHIC EVIDENCE OF MALIGNANCY IN THE LEFT BREAST. BI-RADS 1, NEGATIVE Reviewed, dictated and finalized at location B. IMPRESSION: NO MAMMOGRAPHIC OR SONOGRAPHIC FINDING CORRELATES TO THE PALPABLE LUMP IN THE R IGHT BREAST. FURTHER EVALUATION OF PATIENT'S PALPABLE LUMP SHOULD BE BASED ON C LINICAL IMPRESSION. FOLLOW-UP CLINICALLY WARRANTED. NO MAMMOGRAPHIC EVIDENCE OF MALIGNANCY IN THE LEFT BREAST. BI-RADS 1, NEGATIVE
== END 2025-02-04 10:26 | disposition home or self-care (01) ==
LOC: ANHFOHIMG 10:31
PROVIDERS: PCP Family Medicine; Referring Provider Surgery; Visit Provider Nurse Practitioner
DX: N63.10 Unspecified lump in the right breast, unspecified quadrant (principal)
CPT/HCPCS: 76642; 77062; 77066; G0279

== ENCOUNTER 2025-03-08 08:19 | Outpatient (CLI) | payer OTHER, SELFPAY ==
--- NOTE | ~2025-03-08 | MR_ITS ---
MR breast BI wo/w con 03/08/2025 16:21 CDT INDICATION: Lump right breast. TECHNIQUE: MRI of the breasts perform using standard protocol pre-and post IV contrast with the following sequences: Axial T2 STIR, axial T1, axial vibrant T1 with fat suppression precontrast and multiphasic postcontrast. 20 cc MultiHance administered intravenously. COMPARISON: Comparison to multiple prior studies sequentially, with oldest reviewed study dated 08/23/2020. FINDINGS: There are no abnormalities on the precontrast sequences. There is mild background parenchymal enhancement. No enhancing lesions following contrast administration. No areas of enhancement meeting threshold criteria on CAD analysis. No evidence of signal abnormalities in the axillary or internal mammary node distributions. LEFT BREAST: No signal abnormalities on precontrast sequences. There is mild background parenchymal enhancement. No enhancing lesions following contrast administration. No areas of enhancement meeting threshold criteria on CAD analysis. No evidence of signal abnormalities in the axillary or internal mammary node distributions.] IMPRESSION: 1: Right breast: Negative. No evidence of malignancy. BI-RADS category 1. Recommend annual mammography follow-up. 2: Left breast: Negative. No evidence of malignancy. BI-RADS category 1. Recommend annual mammography follow-up. Follow-up MRI may be useful for supplementing mammographic evaluation as clinically indicated. Reviewed, dictated and finalized at location B. IMPRESSION: 1: Right breast: Negative. No evidence of malignancy. BI-RADS category 1. Recommend annual mammography follow-up. 2: Left breast: Negative. No evidence of malignancy. BI-RADS category 1. Re commend annual mammography follow-up. Follow-up MRI may be useful for supplementing mammographic evaluation as clinic ally indicated.
== END 2025-03-08 08:20 | disposition home or self-care (01) ==
PROVIDERS: PCP Family Medicine; Visit Provider Surgery
DX: N63.15 Unspecified lump in the right breast, overlapping quadrants (principal); N63.41 Unspecified lump in right breast, subareolar; Z80.3 Family history of malignant neoplasm of breast
CPT/HCPCS: 77049; A9579; C8908